=== PATIENT | female | born 1965 | race Caucasian/White ===

== ENCOUNTER → 2016-12-12 | Outpatient (CLI) | payer BC ==
[~2016-12-12] MED LIST: CELEXA PO; HYDRALAZINE HCL50 MG PO; KEFLEX500 MG PO; LABETALOL HCL100 MG PO; LISINOPRIL PO; NO MEDICATIONS; OMEPRAZOLE40 M1 PO
--- NOTE | ~2016-12-12 | MY26 ---
[facility] A Service [facility] RADIOLOGY TEXT RESULTS PATIENT: JUAN ANTONIO PRADO LOCATION: [facility] : 67 UNIT #: [id number] AGE: [address]: Lilian Pires MD SEX: F ORDER DR: [id number] [address] [id number] O MR#: [id number] Acc #: [id number] NAME: JUAN ANTONIO PRADO : 1965 SEX: F STUDY DATE/TIME: 12/12/2016 14:56 UNIT: [facility] ROOM: STUDY DESCRIPTION: [facility] W/ CAD BILAT Attending Physician: Lilian Pires M.D. Ordering Physician: Lilian Pires M.D. Primary Care Physician: Lilian Pires M.D. MEDICAL IMAGING REPORT This report is preliminary unless electronic signature is present EXAM Bilateral diagnostic mammogram with CAD HISTORY Follow up nodular parenchymal pattern. FINDINGS There has been no change. IMPRESSION No change from the prior studies dating back December 03, 2015. The focal, somewhat nodular density in the medial right breast and medial left breast in the CC views are unchanged. Routine mammographic screening suggested in 1 year. BIRADS: 1 Negative. Patients over the age of 40 are entered into a reminder system with target due date for the next mammogram. A result letter will also be sent to the patient. Dictated by... Sher Skinner M.D. THIS IS AN ELECTRONICALLY VERIFIED REPORT Sher Skinner M.D. at 12/13/2016 7:08 AM FEL/pcl TD: 12/12/2016 23:16 JOB #: [id number] [facility] A Service [facility] RADIOLOGY TEXT RESULTS PATIENT: JUAN ANTONIO PRADO LOCATION: [facility] : 67 UNIT #: [id number] AGE: [address]: Lilian Pires MD SEX: F ORDER DR: MEDICAL IMAGING REPORT Page 1 of 1 COPY
== END | disposition home or self-care (01) ==
LOC: CMAM 12-07 14:30
DX: R92.8 Other abnormal and inconclusive findings on diagnostic imaging of breast (principal); R92.2 Inconclusive mammogram
CPT/HCPCS: G0204